=== PATIENT | male | born 1970 | race Caucasian/White ===

== ENCOUNTER 2021-07-03 10:28 | Outpatient (CLI) | payer OTHER ==
[~2021-07-03] VITALS: Ht 177.8 cm; Wt 104.5 kg
[2021-07-03] VITALS (10 sets, daily range): BP systolic 97–119; BP diastolic 62–81
[2021-07-03] MEDS ORDERED: HEPARIN for ARTERIAL LINE 1,500 ML ONE (11:11)
[2021-07-03] MEDS ORDERED: LIDOCAINE 1% PF 2 ML VIAL. ONE (11:11)
[2021-07-03] MEDS ORDERED: IODIXANOL 320 MG/ML 100 ML VIAL. ONE (11:11)
[2021-07-03 11:22] LABS: HEMATOCRIT 43.5 % (39.0-53.0); HEMOGLOBIN 14.9 g/dL (13.0-17.5); RED BLOOD COUNT 4.88 x10^6/uL (4.30-5.70); RED CELL DISTRIBUTION WIDTH 13.6 % (11.5-14.5); WHITE BLOOD COUNT 7.1 x10^3/uL (4.0-11.0)
[2021-07-03 11:29] LABS: CALCIUM 9.2 mg/dL (8.5-10.1); CREATININE 1.1 mg/dL (0.7-1.3); GFR 71.1
[2021-07-03 11:34] LABS: PROTHROMBIN TIME PATIENT 11.8 SEC (11.7-14.0)
[2021-07-03] MEDS ORDERED: LISI20TA18 PO (11:37)
[2021-07-03] MEDS ORDERED: HYDR-2145 PO (11:38)
[2021-07-03] MEDS ORDERED: fentaNYL PF VIAL 100 MCG/2 ML VIAL ONE (11:50)
[2021-07-03] MEDS ORDERED: MIDAZOLAM HCL/PF 2 MG/2 ML VIAL. ONE (11:50)
[2021-07-03] MEDS ORDERED: NITROGLYCERIN 200 MCG/2 ML SYRINGE FOR CATH/VASC LAB. ONE ×2 (11:51→12:21)
[2021-07-03] MEDS ORDERED: VERAPAMIL 5 MG/2 ML VIAL. ONE (11:51)
[2021-07-03] MEDS ORDERED: HEPARIN for IV BOLUS 10,000 UNIT/10 ML VIAL. ONE (11:51)
[2021-07-03] MEDS ORDERED: CONTRAST GIVEN. MC PRN (12:15)
[2021-07-03] MEDS ORDERED: LIDOCAINE 1% PF 2 ML VIAL. INJ ONE (12:15)
[2021-07-03] MEDS ORDERED: HEPARIN for IV BOLUS 10,000 UNIT/10 ML VIAL. IART ONE (12:15)
[2021-07-03] MEDS ORDERED: NITROGLYCERIN 200 MCG/2 ML SYRINGE FOR CATH/VASC LAB. IART ONE (12:15)
[2021-07-03] MEDS ORDERED: MIDAZOLAM HCL/PF 2 MG/2 ML VIAL. IV ONE (12:15)
[2021-07-03] MEDS ORDERED: fentaNYL PF VIAL 100 MCG/2 ML VIAL IV ONE (12:15)
[2021-07-03] MEDS ORDERED: VERAPAMIL 5 MG/2 ML VIAL. IART ONE (12:15)
[2021-07-03] MEDS ORDERED: IODIXANOL 320 MG/ML 100 ML VIAL. IART ONE (12:15)
[2021-07-03] MEDS ORDERED: ASPI-886 PO (13:34)
[2021-07-03] MEDS ORDERED: CRESTOR5 MG PO (13:34)
--- NOTE | 2021-07-03 13:38 | CARD ---
MR#: [id number] Date of Study: 07/03/2021 Ordering Physician: PRECIOUS JIN, Referring Physician: PRECIOUS JIN, Tech: RT Harjit(R)() APPROVED REPORT Technologist: RT Harjit(R)() Nurse: Jessica Martinez RN Procedure(s) performed: MODERATE SEDATION TIME: 26 MINUTES FLUORO TIME: 3.8 MIN DOSE: 70.5 GYCM2 CONTRAST: 80CC VISI LHC, Coronary angiography, Left ventriculogram HISTORY The patient is a 50 year-old male with a history of : hypertension, dyslipidemia, family history of p remature CAD. INDICATION The indication(s) include : unstable angina . CS Clinical Frailty Scale [facility] Clinical Frailty Scale: Managing Well Heart Failure Heart Failure: No PROCEDURE NARRATIVE Clinical information: 50 y.o male presenting for unstable angina. Informed consent: Written informed consent was obtained from the patient after adequate discussion of the risks and jeanine efits of the procedure. Procedure details: ACCESS: The right wrist was prepped and draped in usual sterile fashion. Under 1% lidocaine local anesthesia a 6 Serbian Terumo sheath was placed in the right radial artery via the Seldinger technique. DIAGNOSTIC ANGIOGRAPHY: Right and left coronary arteries were engaged with a 6 Serbian TIG catheter. Diagnostic angiography i n multiple views were obtained. Next, a 6 Serbian pigtail catheter was placed in the left ventricle a nd a LVEDP was measured. A pullback was performed after left ventriculography. All catheters were e xchanged over J-tip guidewire. FINDINGS: ======= Aorta: 110/80 LVEDP: 10 mmHg Left ventriculogram: Ejection fraction 55% Normal wall motion without any evidence of aortic or mitral insufficiency. Coronary angiography: LM: Large caliber vessel with normal angiographic appearance LAD: Large caliber vessel with mild luminal irregularities. D1: Small caliber vessel with normal angiographic appearance LCX: Moderate caliber non-dominant vessel with normal angiographic appearance. OM1: Moderate caliber vessel with normal angiographic appearance RCA: Large caliber dominant vessel with mild luminal irregularities of up to 20% RPDA: Moderate caliber vessel with normal angiographic appearance. *Overall flow suggestive of microvascular dysfunction. CLOSURE: At case completion the right radial sheath was removed and a Terumo radial band was applied with 11 m L of air. Hemostasis was achieved. COMPLICATIONS: No acute complications noted Conclusion 1. Normal left sided filling pressures. 2. Normal LV systolic function. EF 55% 3. No significant epicardial coronary disease. 4. Microvascular dysfunction. Recommendations [facility] Weight Loss Reduction Program Signed by : Precious Jin, Electronically Approved : 07/03/2021 13:38:13
[2021-07-03] MEDS ORDERED: ATORVASTATIN CALCIUM 40 MG TABLET. PO ONE (13:45)
--- NOTE | 2021-07-03 15:04 | NUR ---
Instructions provided on site care, sedation. Verbalized understanding. PIV removed. Armboard remains on. TR removed. Dressing applied. No bleeding at site. Patient's driving home. Lottie called in to preferred pharmacy. All belongings taken w. patient at time of d/c.
== END 2021-07-03 15:10 | disposition home or self-care (01) ==
LOC: CCL 10:28
PROVIDERS: ATTEND Internal Medicine Cardiovascular Disease
DX: I20.0 Unstable angina (principal); I10 Essential (primary) hypertension; E78.00 Pure hypercholesterolemia, unspecified; Z79.82 Long term (current) use of aspirin; Z79.899 Other long term (current) drug therapy; Z98.890 Other specified postprocedural states; Z82.49 Family history of ischemic heart disease and other diseases of the circulatory system; Z20.822 Contact with and (suspected) exposure to COVID-19
CPT/HCPCS: 36415; 76937; 80048; 80061; 85027; 85610; 87426; 93458; 99152; 99153; C1769; C1894; J1644; J2250; J3010; J3490; Q9967